=== PATIENT | male | born 1965 | race Caucasian/White ===

== ENCOUNTER → 2016-12-14 | Outpatient (CLI) | payer BC ==
--- NOTE | 2016-12-14 22:04 | MR ---
EXAMINATION TYPE: MR cervical spine wo con DATE OF EXAM: 12/14/2016 COMPARISON: NONE HISTORY: 51-year-old male with pain radiating into left arm TECHNIQUE: Multiplanar, multisequence images of the cervical spine were acquired. FINDINGS: No craniocervical junction abnormality, predental space widening, or prevertebral soft tissue swellin g. There is normal alignment of the cervical spine. No suspicious bone marrow replacement. Scattered facet and uncovertebral joint degenerative change particularly in the mid to lower cervical spine. Variable mild intervertebral disc desiccation. There is posterior broad-based disc protrusion at C5-C 6. Large left paracentral disc extrusion at C6-C7 with edematous disc material. At C2-C3, mild facet degenerative change without canal or foraminal stenosis. At C3-C4, mild facet and uncovertebral joint degenerative change with mild right neuroforaminal steno sis. No spinal canal stenosis. At C4-C5, no significant spinal canal or neuroforaminal stenosis. At C5-C6, bilateral uncovertebral joint and facet degenerative change causing mild to moderate bilate ral neuroforaminal stenosis. There is posterior disc bulging contributing to a mild spinal canal sten osis with abutment and slight indentation of the ventral cord. At C6/C7, there is a large left paracentral disc extrusion. Disc contributes to a moderate left later al recess stenosis with prominent deformity of the left ventral cord. Along with facet and uncoverteb ral joint degenerative change, there is a moderate to severe left and mild right neuroforaminal steno sis. At C7-T1, no spinal canal or neuroforaminal stenosis. No discrete T2 cord signal abnormality to suggest myelopathic change. No prevertebral or paravertebral soft tissue abnormality seen. IMPRESSION: 1. Mild degenerative disc disease. Additional facet and uncovertebral joint arthropathy especially in the mid to lower cervical spine. 2. In particular, there is a large left paracentral disc herniation at C6-C7. This prominently indent s and deforms the left ventral cord and causes a moderate to severe left neuroforaminal stenosis. 3. Additional posterior disc bulge at C5-C6 causing a mild spinal canal stenosis abutting and minimal ly indenting the ventral cord. Moderate bilateral neural foraminal stenosis here.
== END | disposition home or self-care (01) ==
LOC: RADMRIMAIN 18:02
PROVIDERS: ATTEND Family Medicine
DX: M48.02 Spinal stenosis, cervical region (principal); M99.71 Connective tissue and disc stenosis of intervertebral foramina of cervical region; M50.223 Other cervical disc displacement at C6-C7 level; M50.30 Other cervical disc degeneration, unspecified cervical region; M46.82 Other specified inflammatory spondylopathies, cervical region
CPT/HCPCS: 72141

== ENCOUNTER 2023-01-10 07:56 | Emergency (ER) | payer BC ==
[2023-01-10 08:06] VITALS: RESP 18; TEMP 98
--- NOTE | 2023-01-10 08:34 | ED ---
General Adult HPI - General Chief complaint: Chest Pain Stated complaint: abn EKG Time Seen by Provider: 01/10/23 08:10 Source: patient, RN notes reviewed, old records reviewed Mode of arrival: ambulatory Limitations: no limitations - History of Present Illness Initial comments: This is a 57-year-old male who presents to the emergency department stating that yesterday he was at work and he was having some sharp left-sided chest pain that lasted 5 seconds or less. Patient states at that point when he was having the pain he felt like he couldn't take a deep breath. Patient denies any diaphoretic episodes. Patient denies any nausea. Patient denies any abdominal pain patient denies any vomiting or diarrhea recently. Patient denies any recent cough patient denies lifting or moving anything heavy recently. Patient states he went to his primary medical care doctor they recommended he come to the emergency department yesterday he did not he states the pain stopped in the afternoon but today it was on his mind so decided to come in and get evaluated. Patient states he has had no chest pain since yesterday morning. Patient denies any shortness of breath. Patient denies any history of diabetes hypertension or high cholesterol. Patient states she does not smoke. Patient denies any immediate family history of heart disease. - Related Data Allergies Allergy/AdvReac Type Severity Reaction Status Date / Time No Known Allergies Allergy Verified 01/10/23 08:06 Review of Systems ROS Statement: Those systems with pertinent positive or pertinent negative responses have been documented in the HPI. ROS Other: All systems not noted in ROS Statement are negative. Past Medical History Past Medical History: No Reported History History of Any Multi-Drug Resistant Organisms: None Reported Past Surgical History: No Surgical Hx Reported Past Psychological History: No Psychological Hx Reported Smoking Status: Never smoker Past Alcohol Use History: None Reported Past Drug Use History: None Reported General Exam - General Exam Comments Initial Comments: GENERAL: Patient is well-developed and well-nourished. Patient is nontoxic and well- hydrated and is in no acute distress. ENT: Neck is soft and supple. No significant lymphadenopathy is noted. Oropharynx is clear. Moist mucous membranes. Neck has full range of motion without eliciting any pain. EYES: The sclera were anicteric and conjunctiva were pink and moist. Extraocular movements were intact and pupils were equal round and reactive to light. Eyelids were unremarkable. PULMONARY: Unlabored respirations. Good breath sounds bilaterally. No audible rales rhonchi or wheezing was noted. CARDIOVASCULAR: There is a regular rate and rhythm without any murmurs gallops or rubs. ABDOMEN: Soft and nontender with normal bowel sounds. SKIN: Skin is clear with no lesions or rashes and otherwise unremarkable. NEUROLOGIC: Patient is alert and oriented x3. Cranial nerves II through XII are grossly intact. Motor and sensory are also intact. Normal speech, volume and content. Symmetrical smile. MUSCULOSKELETAL: Normal extremities with adequate strength and full range of motion. LYMPHATICS: No significant lymphadenopathy is noted PSYCHIATRIC: Normal psychiatric evaluation. Limitations: no limitations Course Vital Signs 01/10/23 01/10/23 08:02 09:27 Temperature 98 F Pulse Rate 58 L 65 Respiratory 18 18 Rate Blood Pressure 148/91 144/86 O2 Sat by Pulse 97 99 Oximetry Medical Decision Making - Medical Decision Making EKG was interpreted by myself and shows a sinus bradycardia 57 bpm NJ interval 253 QRSs 89 QT interval 3 5070 QTC is 352. Patient's EKG shows no ST segment elevation or depression. Was pt. sent in by a medical professional or institution (, PA, PENOLOGY PROFESSOR, urgent care, hospital, or senior care...) When possible be specific @ -Patient was sent in by his primary medical care physician Did you speak to anyone other than the patient for history (EMS, parent, family, police, friend...)? What history was obtained from this source @ -No Did you review nursing and triage notes (agree or disagree)? Why? @ -I reviewed and agree with nursing and triage notes Were old charts reviewed (outside hosp., previous admission, EMS record, old EKG, old radiological studies, urgent care reports/EKG's, senior care records)? Report findings @ -I reviewed the EKG that was sent with him from his physician's office from yesterday Differential Diagnosis (chest pain, altered mental status, abdominal pain women, abdominal pain men, vaginal bleeding, weakness, fever, dyspnea, syncope, headache, dizziness, GI bleed, back pain, seizure, CVA, palpatations, mental health, musculoskeletal)? @ -Differential Chest Pain: Stable Angina, Unstable Angina, STEMI, NSTEMI Aortic Dissection, Pneumothorax, Musculoskeletal, Esophageal Spasm GERD, Cholecystitis, Pancreatitis, Zoster, this is not meant to be an all-inclusive list. EKG interpreted by me (3pts min.). @ -As above X-rays interpreted by me (1pt min.). @ -Chest x-ray shows no acute abnormality CT interpreted by me (1pt min.). @ -None done U/S interpreted by me (1pt. min.). @ -None done What testing was considered but not performed or refused? (CT, X-rays, U/S, labs)? Why? @ -None What meds were considered but not given or refused? Why? @ -None Did you discuss the management of the patient with other professionals (professionals i.e. DrJimbo, PA, PENOLOGY PROFESSOR, lab, RT, psych nurse, clinical social work aide, iron carrier, teacher, human resources officer, family caseworker)? Give summary @ -No Was smoking cessation discussed for >3mins.? @ -No Was critical care preformed (if so, how long)? @ -No Were there social determinants of health that impacted care today? How? (Homelessness, low income, unemployed, alcoholism, drug addiction, t ransportation, low edu. Level, literacy, decrease access to med. care, shelter, rehab)? @ -No Was there de-escalation of care discussed even if they declined (Discuss DNR or withdrawal of care, Hospice)? DNR status @ -No What co-morbidities impacted this encounter? (DM, HTN, Smoking, COPD, CAD, Cancer, CVA, ARF, Chemo, Hep., AIDS, mental health diagnosis, sleep apnea, morbid obesity)? @ -None Was patient admitted / discharged? Hospital course, mention meds given and route, prescriptions, significant lab abnormalities, going to OR and other pertinent info. @ -Patient's chest pain only lasted less than 5 seconds when it was occurring and it hasn't recurred since this afternoon. Patient is in no distress at all today. Patient has no complaints today Undiagnosed new problem with uncertain prognosis? @ -No Drug Therapy requiring intensive monitoring for toxicity (Heparin, Nitro, Insulin, Cardizem)? @ -No Were any procedures done? @ -No Diagnosis/symptom? @ -Atypical chest pain Acute, or Chronic, or Acute on Chronic? @ -Acute Uncomplicated (without systemic symptoms) or Complicated (systemic symptoms)? @ -Complicated Side effects of treatment? @ -No Exacerbation, Progression, or Severe Exacerbation? @ -No Poses a threat to life or bodily function? How? (Chest pain, [place], [place], pneumonia, PE, COPD, DKA, ARF, appy, cholecystitis, CVA, Diverticulitis, Homicidal, Suicidal, threat to staff... and all critical care pts) @ -No - Lab Data Result diagrams: 01/10/23 08:42 01/10/23 08:42 Lab Results 01/10/23 01/10/23 01/10/23 Range/Units 08:42 08:42 08:42 WBC 8.7 (3.8-10.6) k/uL RBC 5.00 (4.30-5.90) m/uL Hgb 15.9 (13.0-17.5) gm/dL Hct 45.8 (39.0-53.0) % MCV 91.5 (80.0-100.0) fL MCH 31.8 (25.0-35.0) pg MCHC 34.8 (31.0-37.0) g/dL RDW 12.8 (11.5-15.5) % Plt Count 185 (150-450) k/uL MPV 8.2 Neutrophils % 66 % Lymphocytes % 22 % Monocytes % 7 % Eosinophils % 2 % Basophils % 0 % Neutrophils # 5.8 (1.3-7.7) k/uL Lymphocytes # 2.0 (1.0-4.8) k/uL Monocytes # 0.6 (0-1.0) k/uL Eosinophils # 0.2 (0-0.7) k/uL Basophils # 0.0 (0-0.2) k/uL PT 9.6 (9.0-12.0) sec INR 0.9 (<1.2) APTT 23.9 (22.0-30.0) sec D-Dimer 0.27 (<0.60) mg/L FEU Sodium 140 (137-145) mmol/L Potassium 4.6 (3.5-5.1) mmol/L Chloride 106 (98-107) mmol/L Carbon Dioxide 25 (22-30) mmol/L Anion Gap 9 mmol/L BUN 16 (9-20) mg/dL Creatinine 0.90 (0.66-1.25) mg/dL Est GFR (CKD-EPI)AfAm >90 (>60 ml/min/1.73 sqM) Est GFR (CKD-EPI)NonAf >90 (>60 ml/min/1.73 sqM) Glucose 103 H (74-99) mg/dL Calcium 8.9 (8.4-10.2) mg/dL Magnesium 2.1 (1.6-2.3) mg/dL Total Bilirubin 0.5 (0.2-1.3) mg/dL AST 27 (17-59) U/L ALT 29 (4-49) U/L Alkaline Phosphatase 65 (38-126) U/L Troponin I (0.000-0.034) ng/mL Total Protein 7.0 (6.3-8.2) g/dL Albumin 4.3 (3.5-5.0) g/dL 01/10/23 Range/Units 08:42 WBC (3.8-10.6) k/uL RBC (4.30-5.90) m/uL Hgb (13.0-17.5) gm/dL Hct (39.0-53.0) % MCV (80.0-100.0) fL MCH (25.0-35.0) pg MCHC (31.0-37.0) g/dL RDW (11.5-15.5) % Plt Count (150-450) k/uL MPV Neutrophils % % Lymphocytes % % Monocytes % % Eosinophils % % Basophils % % Neutrophils # (1.3-7.7) k/uL Lymphocytes # (1.0-4.8) k/uL Monocytes # (0-1.0) k/uL Eosinophils # (0-0.7) k/uL Basophils # (0-0.2) k/uL PT (9.0-12.0) sec INR (<1.2) APTT (22.0-30.0) sec D-Dimer (<0.60) mg/L FEU Sodium (137-145) mmol/L Potassium (3.5-5.1) mmol/L Chloride (98-107) mmol/L Carbon Dioxide (22-30) mmol/L Anion Gap mmol/L BUN (9-20) mg/dL Creatinine (0.66-1.25) mg/dL Est GFR (CKD-EPI)AfAm (>60 ml/min/1.73 sqM) Est GFR (CKD-EPI)NonAf (>60 ml/min/1.73 sqM) Glucose (74-99) mg/dL Calcium (8.4-10.2) mg/dL Magnesium (1.6-2.3) mg/dL Total Bilirubin (0.2-1.3) mg/dL AST (17-59) U/L ALT (4-49) U/L Alkaline Phosphatase (38-126) U/L Troponin I <0.012 (0.000-0.034) ng/mL Total Protein (6.3-8.2) g/dL Albumin (3.5-5.0) g/dL Disposition Clinical Impression: Atypical chest pain Disposition: HOME SELF-CARE Condition: Good Instructions (If sedation given, give patient instructions): Chest Pain (ED) Is patient prescribed a controlled substance at d/c from ED?: No Referrals: None,Stated [Primary Care Provider] - 1-2 days Time of Disposition: 09:41
[2023-01-10 08:52] LABS: Basophils % (A) 0 %; Eosinophils # (A) 0.2 k/uL (0-0.7); Eosinophils % (A) 2 %; HCT 45.8 % (39.0-53.0); HGB 15.9 gm/dL (13.0-17.5); Lymphocytes % (A) 22 %; MCH 31.8 pg (25.0-35.0); MCHC 34.8 g/dL (31.0-37.0); MCV 91.5 fL (80.0-100.0); Mean Platelet Volume 8.2; Monocytes # (A) 0.6 k/uL (0-1.0); Monocytes % (A) 7 %; Neutrophils # (A) 5.8 k/uL (1.3-7.7); Neutrophils % (A) 66 %; Platelet Count 185 k/uL (150-450); RDW 12.8 % (11.5-15.5); WBC 8.7 k/uL (3.8-10.6)
[2023-01-10 09:02] LABS: ALT 29 U/L (4-49); AST 27 U/L (17-59); African American GFR (CKD) >90 (>60 ml/min/1.73 sqM); Albumin 4.3 g/dL (3.5-5.0); Alkaline Phosphatase 65 U/L (38-126); Anion Gap 9 mmol/L; Blood Urea Nitrogen 16 mg/dL (9-20); Calcium 8.9 mg/dL (8.4-10.2); Carbon Dioxide 25 mmol/L (22-30); Chloride 106 mmol/L (98-107); Glucose 103 mg/dL (74-99); Magnesium 2.1 mg/dL (1.6-2.3); Non-African American GFR(CKD) >90 (>60 ml/min/1.73 sqM); Potassium 4.6 mmol/L (3.5-5.1); Sodium 140 mmol/L (137-145); Total Bilirubin 0.5 mg/dL (0.2-1.3)
[2023-01-10 09:03] LABS: INR 0.9 (<1.2); Partial Thromboplastin Time 23.9 sec (22.0-30.0); Prothrombin Time 9.6 sec (9.0-12.0)
--- NOTE | 2023-01-10 09:16 | XR ---
EXAMINATION TYPE: XR chest 2V DATE OF EXAM: 01/10/2023 COMPARISON: NONE HISTORY: Shortness of breath TECHNIQUE: Frontal and lateral views of the chest are obtained. FINDINGS: Scattered senescent parenchymal changes noted. Hyperinflation compatible with COPD. No evidence for infiltrate. No evidence for atelectasis. Heart size is stable. Mediastinal structures are stable and grossly unremarkable. No evidence for hilar prominence. Degenerative changes dorsal spine. IMPRESSION: 1. No evidence for acute pulmonary disease.
[2023-01-10 09:29] VITALS: BP 144/86; PULSE 65
== END 2023-01-10 09:57 | disposition home or self-care (01) ==
LOC: EC 07:56
DX: R07.89 Other chest pain (principal)
CPT/HCPCS: 36415; 71046; 80053; 83735; 84484; 85025; 85379; 85610; 85730; 93005; 99285